=== PATIENT | male | born 1965 | race Native Hawaiian/Other Pacific Islander ===

== ENCOUNTER 2021-06-17 12:19 | Outpatient (CLI) | payer OTHER | END 2021-06-17 21:49 | disposition home or self-care (01) | LOC: RAD 12:19 | PROVIDERS: ATTEND Nurse Practitioner Family | DX: U07.1 COVID-19 (principal) ==

== ENCOUNTER 2021-06-19 11:14 | Outpatient (CLI) | payer OTHER ==
[~2021-06-19] VITALS: Ht 180.3 cm; Wt 113.4 kg
== END 2021-06-19 19:11 | disposition home or self-care (01) ==
LOC: INF 11:14
PROVIDERS: ATTEND Internal Medicine
DX: Z23 Encounter for immunization (principal); U07.1 COVID-19; J12.82 Pneumonia due to coronavirus disease 2019
CPT/HCPCS: 96365; M0244